=== PATIENT | male | born 1975 | race American Indian/Alaskan Native ===

== ENCOUNTER 2017-12-22 11:51 | Emergency (ER) | payer SELFPAY ==
[2017-12-22 12:42] VITALS: BP 122/86
--- NOTE | 2017-12-22 13:52 | Emergency Department Report ---
Blank Doc - Documentation Documentation: Patient is a 42-year-old [place] male past medical history of smoking who is presenting with 2 days call call congestion with green sputum production. Patient also has body aches as well. Chest x-ray will be ordered to rule out atypical pneumonia and patient will be followed with the [facility]
--- NOTE | 2017-12-22 14:30 | XRay Report ---
CHEST 2 VIEWS INDICATION: Cough. COMPARISON: None similar. FINDINGS: PA and lateral chest radiographs demonstrate normal cardiomediastinal silhouette. Clear lungs. Lower thoracic spine degenerative spurring. CONCLUSION: No acute disease in the chest. Thank you for the opportunity to participate in this patient's care.
--- NOTE | 2017-12-22 15:24 | Emergency Department Report ---
- General Chief Complaint: Upper Respiratory Infection Stated Complaint: FLU LIKE SYMPTOMS Time Seen by Provider: 12/22/17 13:40 Source: patient Mode of arrival: Ambulatory Limitations: No Limitations - History of Present Illness Initial Comments: This is a 42-year-old male nontoxic, well nourished in appearance, no acute signs of distress presents to the ED with c/o of productive cough, fever, chills , body aches, rhinorrhea, nasal congestion x2 days. Patient describes productive cough as yellow mucus production. Patient denies any sick contact. Patient denies any recent travels, long car, recent hospital stays. Patient denies any calf pain or calf tenderness. Patient denies any chest pain, short of breath, fever, chills, nausea, vomiting, hemoptysis, numbness, tingling, headache or stiff neck. Patient denies any allergies or PMH. MD Complaint: cough, rhinorrhea, nasal congestion, other (body aches) -: days(s) (2) Severity: mild Severity scale (0 -10): 8 Quality: aching Consistency: constant Improves With: nothing Worsens With: nothing Associated Symptoms: rhinorrhea, nasal congestion, cough. denies: fever, chills , myalgias, diaphoresis, headache, sore throat, stiff neck, chest pain, shortness of breath, abdominal pain, nausea, vomiting, diarrhea, dysuria, rash, confusion, right sweats, weight loss, epistaxis, hoarseness, ear pain Treatments Prior to Arrival: none - Related Data Previous Rx's Medication Instructions Recorded Last Taken Type Azithromycin [Zithromax Z-DONNIE] 250 mg PO DAILY #6 tablet 12/22/17 Unknown Rx Benzonatate [Tessalon Perle] 100 mg PO Q6H PRN #20 capsule 12/22/17 Unknown Rx Ibuprofen [Motrin] 600 mg PO Q8H PRN #30 tablet 12/22/17 Unknown Rx Oseltamivir [Tamiflu] 75 mg PO BID #14 cap 12/22/17 Unknown Rx Allergies Allergy/AdvReac Type Severity Reaction Status Date / Time No Known Allergies Allergy Unverified 12/22/17 12:38 ED Review of Systems ROS: Stated complaint: FLU LIKE SYMPTOMS Other details as noted in HPI Constitutional: denies: chills, fever Eyes: denies: eye pain, eye discharge, vision change ENT: denies: ear pain, throat pain Respiratory: cough. denies: shortness of breath, wheezing Cardiovascular: denies: chest pain, palpitations Endocrine: no symptoms reported Gastrointestinal: denies: abdominal pain, nausea, diarrhea Genitourinary: denies: urgency, dysuria Musculoskeletal: denies: back pain, joint swelling, arthralgia Skin: denies: rash, lesions Neurological: denies: headache, weakness, paresthesias Psychiatric: denies: anxiety, depression Hematological/Lymphatic: denies: easy bleeding, easy bruising ED Past Medical Hx - Past Medical History Previous Medical History?: No - Surgical History Past Surgical History?: No - Social History Smoking Status: Current Every Day Smoker Substance Use Type: Marijuana, Non Opiate Pain - Medications Home Medications: Home Medications Medication Instructions Recorded Confirmed Last Taken Type Azithromycin [Zithromax Z-DONNIE] 250 mg PO DAILY #6 tablet 12/22/17 Unknown Rx Benzonatate [Tessalon Perle] 100 mg PO Q6H PRN #20 capsule 12/22/17 Unknown Rx Ibuprofen [Motrin] 600 mg PO Q8H PRN #30 tablet 12/22/17 Unknown Rx Oseltamivir [Tamiflu] 75 mg PO BID #14 cap 12/22/17 Unknown Rx ED Physical Exam - General Limitations: No Limitations General appearance: alert, in no apparent distress - Head Head exam: Present: atraumatic, normocephalic - Eye Eye exam: Present: normal appearance, PERRL, EOMI Pupils: Present: normal accommodation - ENT ENT exam: Present: normal exam, normal orophraynx, mucous membranes moist, TM's normal bilaterally, normal external ear exam - Neck Neck exam: Present: normal inspection, full ROM. Absent: tenderness, meningismus, lymphadenopathy, thyromegaly - Respiratory Respiratory exam: Present: normal lung sounds bilaterally. Absent: respiratory distress, wheezes, rales, rhonchi, stridor, chest wall tenderness, accessory muscle use, decreased breath sounds, prolonged expiratory - Cardiovascular Cardiovascular Exam: Present: regular rate, normal rhythm, normal heart sounds. Absent: bradycardia, tachycardia, irregular rhythm, systolic murmur, diastolic murmur, rubs, gallop - GI/Abdominal GI/Abdominal exam: Present: soft, normal bowel sounds. Absent: distended, tenderness, guarding, rebound, rigid, diminished bowel sounds - Rectal Rectal exam: Present: deferred - Extremities Exam Extremities exam: Present: normal inspection, full ROM, normal capillary refill. Absent: tenderness, pedal edema, joint swelling, calf tenderness - Back Exam Back exam: Present: normal inspection, full ROM. Absent: tenderness, CVA tenderness (R), CVA tenderness (L), muscle spasm, paraspinal tenderness, vertebral tenderness, rash noted - Neurological Exam Neurological exam: Present: alert, oriented X3, CN II-XII intact, normal gait, reflexes normal - Psychiatric Psychiatric exam: Present: normal affect, normal mood - Skin Skin exam: Present: warm, dry, intact, normal color. Absent: rash ED Course Vital Signs 12/22/17 12:38 Temperature 98.9 F Pulse Rate 76 Respiratory 18 Rate Blood Pressure 122/86 O2 Sat by Pulse 99 Oximetry - Reevaluation(s) Reevaluation #1: 12/22/17 15:29 Patient is speaking in full sentences with no signs of distress noted. - Consultations Consultation #1: 12/22/17 15:29 Patient has been consulted with Dr. Avelar about patient history, physical exam , and labs and examined and screened patient and agrees to ED plan of care and discharge plan of care. ED Medical Decision Making - Medical Decision Making This is a 42-year-old male that presents with upper respiratory infection and influenza. Patient is stable and was examined by me. Chest x-ray has been obtained and dictated by radiologist with normal exam. Patient is notified of x -ray results with no questions noted. Due to patient having symptoms of upper respiratory infection and symptoms of influenza and worsening I will treat patient empirically Tamiflu with zpak. Patient is within the >72 hour window for tamiflu. Patient was instructed to increase hydration, rest and take Motrin for fever episodes. Patient received motrin and tesslone perrls in the ED. Vitals stable. Patient is nonfebrile and normal heart rate. Patient was orally hydrated and patient tolerated well known nausea or vomiting. Patient was instructed Follow-up with a primary care doctor in 3-5 days or if symptoms worsen and continue return to emergency room as soon as possible. At time time of discharge, the patient does not seem toxic or ill in appearance. No acute signs of distress noted. Patient agrees to discharge treatment plan of care. No further questions noted by the patient. Critical care attestation.: If time is entered above; I have spent that time in minutes in the direct care of this critically ill patient, excluding procedure time. ED Disposition Clinical Impression: Influenza Upper respiratory infection Qualifiers: URI type: unspecified URI Qualified Code(s): J06.9 - Acute upper respiratory infection, unspecified Disposition: DC- TO HOME OR SELFCARE Is pt being admited?: No Does the pt Need Aspirin: No Condition: Stable Instructions: Upper Respiratory Infection (ED), Oseltamivir (By mouth), Azithromycin (By mouth), Influenza (ED), Benzonatate (By mouth), Ibuprofen (By mouth), Electrolyte Supplement (By mouth) Additional Instructions: Follow-up with a primary care doctor in 3-5 days or if symptoms worsen and continue return to emergency room as soon as possible. Increased rest, hydration, and take Motrin as prescribed during Fever episode. Prescriptions: Azithromycin [Zithromax Z-DONNIE] 250 mg PO DAILY #6 tablet Benzonatate [Tessalon Perle] 100 mg PO Q6H PRN #20 capsule PRN Reason: Cough Ibuprofen [Motrin] 600 mg PO Q8H PRN #30 tablet PRN Reason: Pain Oseltamivir [Tamiflu] 75 mg PO BID #14 cap Referrals: PRIMARY CAREMD [Primary Care Provider] - 3-5 Days DELILAH SCHAFER MD [Staff Physician] - 3-5 Days [facility] [Outside] - 3-5 Days [facility] [Outside] - 3-5 Days Forms: Work/School Release Form(ED)
[2017-12-22] MEDS ORDERED: MOTRIN PO ONE (15:31)
[2017-12-22] MEDS ORDERED: TESSALON PERLES PO ONE (15:31)
== END 2017-12-22 15:45 | disposition home or self-care (01) ==
LOC: ED 11:51
DX: J06.9 Acute upper respiratory infection, unspecified (principal); J11.1 Influenza due to unidentified influenza virus with other respiratory manifestations; F17.200 Nicotine dependence, unspecified, uncomplicated; F12.10 Cannabis abuse, uncomplicated
CPT/HCPCS: 71046; 99283

== ENCOUNTER 2019-05-25 16:03 | Emergency (ER) | payer OTHER ==
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
[2019-05-25 16:17] VITALS: BP 126/81
--- NOTE | 2019-05-25 16:55 | XRay Report ---
RIGHT KNEE 3 VIEWS INDICATION / CLINICAL INFORMATION: right knee pain. COMPARISON: None available. FINDINGS: No fracture, dislocation or right knee effusion is present. Joint spaces are well preserved. Signer Name: Juan Gimenez MD Signed: 05/25/2019 4:51 PM Workstation Name: [id number]
[2019-05-25] MEDS ORDERED: TORADOL IM ONE (18:07)
[2019-05-25] MEDS ORDERED: DELTASONE PO ONE (18:08)
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
== END 2019-05-25 18:57 | disposition home or self-care (01) ==
LOC: ED 16:03
DX: M25.561 Pain in right knee (principal); F17.200 Nicotine dependence, unspecified, uncomplicated; Z79.899 Other long term (current) drug therapy
CPT/HCPCS: 73562; 96372; 99283; J1885; J7512

== ENCOUNTER 2019-09-08 12:41 | Outpatient (CLI) | payer OTHER ==
--- NOTE | 2019-09-08 15:50 | XRay Report ---
CERVICAL SPINE 3 VIEWS INDICATION / CLINICAL INFORMATION: NECK PAIN COMPARISON: None available. FINDINGS: BONES / JOINT(S): There are [id number]-hgjjbohr anterior hypertrophic changes from C4-5 through C6-7. Th ere is mild narrowing of the C6-7 disc space. Minimal posterior spurring is also present at that leve l. There is no evidence of fracture, subluxation or destructive lesion. SOFT TISSUES: There is minimal ossification in the ligamentum nuchae at the C6 level. The prevertebra l soft tissues are normal. ADDITIONAL FINDINGS: None. IMPRESSION: Spondylosis without acute abnormality. Signer Name: Je Valderrama MD Signed: 09/08/2019 3:45 PM Workstation Name: [id number]
== END 2019-09-08 12:42 | disposition home or self-care (01) ==
LOC: XRAY 12:41
PROVIDERS: ATTEND Internal Medicine
DX: M47.812 Spondylosis without myelopathy or radiculopathy, cervical region (principal)
CPT/HCPCS: 72040

== ENCOUNTER 2019-10-27 09:51 | Outpatient (CLI) | payer OTHER ==
--- NOTE | 2019-10-27 11:07 | XRay Report ---
INDICATION: Lower back pain. COMPARISON: None. FINDINGS: There are 5 nonrib-bearing lumbar vertebral bodies. Vertebral body heights are preserved an d there is no evidence for vertebral body fracture or subluxation. Intervertebral disc heights are pr eserved without significant degenerative change. There is a 7 mm calcific density which overlies the upper pole the right kidney, possibly a renal stone or cholelithiasis. IMPRESSION: Lumbar spine without evidence of acute osseous injury or significant degenerative change. There is a 7 mm calcific density which overlies the upper pole the right kidney, possibly a renal sto ne or cholelithiasis. If pain persists, a right upper quadrant ultrasound may be beneficial for furth er characterization. Signer Name: Tal Yuan MD Signed: 10/27/2019 11:03 AM Workstation Name: [id number]
== END 2019-10-27 09:52 | disposition home or self-care (01) ==
LOC: XRAY 09:51
PROVIDERS: ATTEND Internal Medicine
DX: M47.816 Spondylosis without myelopathy or radiculopathy, lumbar region (principal)
CPT/HCPCS: 72100

== ENCOUNTER 2019-12-03 19:44 | Emergency (ER) | payer SELFPAY ==
--- NOTE | 2019-12-03 20:02 | Emergency Department Report ---
Blank Doc - Documentation Documentation: 44-year-old male that presents with right foot pain s/p fall. This initial assessment/diagnostic orders/clinical plan/treatment(s) is/are subject to change based on patient's health status, clinical progression and re- assessment by fellow clinical providers in the ED. Further treatment and workup at subsequent clinical providers discretion. Patient/guardians urged not to elope from the ED as their condition may be serious if not clinically assessed and managed. Initial orders include: 1- Patient sent to [facility] for further evaluation and treatment 2- xrays
--- NOTE | 2019-12-03 21:14 | XRay Report ---
RIGHT FOOT 3 VIEWS INDICATION / CLINICAL INFORMATION: foot pain s/p fall. COMPARISON: None available. FINDINGS: Moderate degenerative arthrosis is seen within the first MTP joint with an old well-corticated fractu re osteophyte arising from medial base first toe proximal phalanx. No acute fracture, dislocation or soft tissue swelling is seen within right foot. Signer Name: Juan Gimenez MD Signed: 12/03/2019 9:09 PM Workstation Name: [id number]
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
[2019-12-04 05:47] VITALS: BP 114/67
== END 2019-12-04 05:49 | disposition home or self-care (01) ==
LOC: ED 19:44
DX: S96.911A Strain of unspecified muscle and tendon at ankle and foot level, right foot, initial encounter (principal); S00.531A Contusion of lip, initial encounter; F17.200 Nicotine dependence, unspecified, uncomplicated; F12.10 Cannabis abuse, uncomplicated; Z98.890 Other specified postprocedural states; Z79.899 Other long term (current) drug therapy; W01.0XXA Fall on same level from slipping, tripping and stumbling without subsequent striking against object, initial encounter; Y93.89 Activity, other specified; Y92.009 Unspecified place in unspecified non-institutional (private) residence as the place of occurrence of the external cause; Y99.8 Other external cause status

== ENCOUNTER 2019-12-17 21:31 | Emergency (ER) | payer SELFPAY ==
--- NOTE | 2019-12-17 23:43 | XRay Report ---
RIGHT HAND 3 VIEWS INDICATION / CLINICAL INFORMATION: Right hand pain and swelling. Additional history: Swelling of right index, middle and ring fingers fo r several days without a known injury. COMPARISON: Right hand series from 10/10/2018. FINDINGS: BONES and JOINT(S): No acute fracture or subluxation. Nonspecific erosive changes are noted along the base of the proximal phalanx of the middle finger. These changes are not seen on the prior right eden d series. No additional significant arthritis. SOFT TISSUES: No significant abnormality. ADDITIONAL FINDINGS: None. IMPRESSION: 1. No acute abnormality of the right hand. 2. Nonspecific erosive changes of the right middle finger. Signer Name: Riki Marie MD Signed: 12/17/2019 11:38 PM Workstation Name: [id number]
[2019-12-18 03:52] VITALS: BP 121/80
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
== END 2019-12-18 08:02 | disposition home or self-care (01) ==
LOC: ED 21:31
DX: M79.644 Pain in right finger(s) (principal); Z98.890 Other specified postprocedural states; Z79.1 Long term (current) use of non-steroidal anti-inflammatories (NSAID); Z79.899 Other long term (current) drug therapy